=== PATIENT | male | born 1980 | race Caucasian/White ===

== ENCOUNTER 2022-07-23 18:20 | Emergency (ER) | payer OTHER ==
[2022-07-23] MEDS ORDERED: Bupivacaine PF 0.5% 30 ML VIAL ONE (19:07)
[2022-07-23] MEDS ORDERED: Lidocaine 1% (PF) 30 ML VIAL ONE (19:07)
== END 2022-07-23 20:11 | disposition home or self-care (01) ==
LOC: CSHERS 18:20
DX: S61.111A Laceration without foreign body of right thumb with damage to nail, initial encounter (principal); I10 Essential (primary) hypertension; W27.0XXA Contact with workbench tool, initial encounter
CPT/HCPCS: 12001; J2001; S0020

== ENCOUNTER 2022-12-16 07:22 | Emergency (ER) | payer OTHER ==
[2022-12-16] MEDS ORDERED: Ketorolac Tromethamine 30 MG/ML VIAL ONE (08:57)
[2022-12-16] MEDS ORDERED: cefTRIAXone (ROCEPHIN) 1 GM VIAL ONE (08:58)
[2022-12-16 09:24] LABS: #Eosinphils 0.1 10x3/uL (0.0-0.5); #Monocytes 0.6 10x3/uL (0.0-1.1); #Neutrophils 6.6 10x3/uL (1.5-8.4); %Basophils 0.1 % (0.0-2.0); %Eosinophils 1.2 % (0.0-6.0); %Lymphocytes 11.1 % (18.0-47.0); %Monocytes 6.7 % (0.0-10.0); %Neutrophils 80.7 % (40.0-75.0); Hematocrit 42.9 % (38.8-50.0); Hemoglobin 14.4 g/dL (13.5-17.5); Mean Corpuscular HGB CONC 33.6 g/dL (32.0-36.0); Mean Corpuscular Hemoglobin 27.8 pg (27.0-33.0); Mean Corpuscular Volume 82.8 fl (81.2-95.1); Mean Platelet Volume 10.5 fl (7.4-10.4); Platelet Count 162 10x3/uL (150-450); RBC Distribution Width 12.8 % (11.5-14.5); Red Blood Cell (RBC) Count 5.18 10x6/uL (4.32-5.72); White Blood Cell (WBC) Count 8.2 10x3/uL (3.5-10.5)
[2022-12-16 09:50] LABS: ALT (SGPT) 28 U/L (8-55); AST (SGOT) 21 U/L (5-34); Albumin 4.9 g/dL (3.5-5.0); Alkaline Phosphatase 69 U/L (40-110); Anion Gap 15 mmol/L (10-20); BUN (Urea Nitrogen) 12 mg/dL (8.9-20.6); Bilirubin, Total 0.9 mg/dL (0.2-1.2); Calc. Creatinine Clearance 0 mL/min (70-130); Calcium 9.5 mg/dL (7.8-10.44); Carbon Dioxide 25 mmol/L (22-29); Chloride 105 mmol/L (98-107); Estimated GFR 79; Globulin 3.1 g/dL (2.4-3.5); Glucose 115 mg/dL (70-105); Potassium 4.3 mmol/L (3.5-5.1); Sodium 141 mmol/L (136-145)
[2022-12-16] MEDS ORDERED: Bacitracin 1 PK ONE (10:09)
== END 2022-12-16 10:03 | disposition home or self-care (01) ==
LOC: CSHERS 07:22
DX: L03.115 Cellulitis of right lower limb (principal); E78.5 Hyperlipidemia, unspecified; I10 Essential (primary) hypertension
CPT/HCPCS: 36415; 80053; 85025; 96365; 96366; 96375; J0696; J1885